=== PATIENT | male | born 1990 | race African-American/Black ===

== ENCOUNTER 2016-11-21 22:12 | Emergency (ER) | payer OTHER ==
[~2016-11-21] VITALS: Ht 162.6 cm; Wt 60.0 kg
[2016-11-22] MEDS ORDERED: NARCAN4 MG NS (00:26)
[2016-11-22 00:50] VITALS: BP 145/91
== END 2016-11-22 00:50 | disposition home or self-care (01) ==
LOC: EME → EDBD 22:12 → EME 11-22 00:50
DX: T40.601A Poisoning by unspecified narcotics, accidental (unintentional), initial encounter (principal); R11.2 Nausea with vomiting, unspecified; F10.99 Alcohol use, unspecified with unspecified alcohol-induced disorder; F17.200 Nicotine dependence, unspecified, uncomplicated
CPT/HCPCS: 93005; 99281; 99285; J2310; J2405; J7030

== ENCOUNTER 2017-07-25 17:07 | Emergency (ER) | payer OTHER ==
[~2017-07-25] VITALS: Ht 165.1 cm; Wt 57.2 kg
[~2017-07-25 17:07] MED LIST: NARCAN4 MG NS
[2017-07-25 17:55] LABS: HEMATOCRIT 45.9 % (38.0-50.0); HEMOGLOBIN 15.1 G/DL (12.5-16.6); MCH 30.3 PG (29.0-34.0); MCHC 32.9 G/DL (30.0-36.0); MCV 92.2 FL (86-99); PLATELET COUNT 257 K/uL (156-360); RBC DIS.WIDTH-CV 11.3 % (11.8-14.6); RBC DIS.WIDTH-SD 38.5 % (39-53); RED BLOOD COUNT 4.98 M/uL (4.00-5.50); WHITE BLOOD COUNT 9.5 K/uL (4.1-10.2)
[2017-07-25 18:04] LABS: ALBUMIN 4.4 g/dL (3.2-4.8); CHLORIDE 106 mEq/L (99-109); POTASSIUM 3.9 mEq/L (3.7-5.4); SODIUM 140 mEq/L (136-147)
[2017-07-25 18:07] LABS: GLUCOSE 86 mg/dL (70-99); TOTAL PROTEIN 7.5 g/dL (6.4-8.3)
[2017-07-25 18:10] LABS: ALKALINE PHOSPHATASE 83 IU/L (3-129); GFR ESTIMATE (CALCULATED) > 59 mL/min/ (58.99-99999)
[2017-07-25 18:11] LABS: UREA NITROGEN (BUN) 10 mg/dL (9-23)
[2017-07-25 18:12] LABS: AST (GOT) 20 IU/L (2-34)
[2017-07-25 18:13] LABS: ALT (GPT) 13 IU/L (3-49)
[2017-07-25 18:16] LABS: APPEARANCE CLEAR ((CLEAR)); BILIRUBIN NEGATIVE; BLOOD NEGATIVE; COLOR YELLOW ((YELLOW)); GLUCOSE (STRIP) NEGATIVE; KETONES 5; LEUKOCYTES NEGATIVE; NITRITE NEGATIVE; PROTEIN (STRIP) NEGATIVE; SPECIFIC GRAVITY 1.023 (1.000-1.030); UCUL ADDED? NO
[2017-07-25 18:38] LABS: LIPASE 37 U/L (1.0-51.0)
[2017-07-25] MEDS ORDERED: ZOFRAN ODT4 MG PO (18:51)
[2017-07-25 19:01] VITALS: BP 135/79
== END 2017-07-25 19:02 | disposition home or self-care (01) ==
LOC: EME 17:07
DX: R11.2 Nausea with vomiting, unspecified (principal); R10.84 Generalized abdominal pain; J45.909 Unspecified asthma, uncomplicated; F31.9 Bipolar disorder, unspecified; F20.9 Schizophrenia, unspecified; F17.200 Nicotine dependence, unspecified, uncomplicated
CPT/HCPCS: 80053; 81003; 83690; 85027; 99281; 99284

== ENCOUNTER 2018-01-02 14:38 | Emergency (ER) | payer OTHER ==
[~2018-01-02] VITALS: Ht 167.6 cm; Wt 55.6 kg
[~2018-01-02 14:38] MED LIST changes: +ZOFRAN ODT4 MG PO
[2018-01-02] MEDS ORDERED: LIDODERM 5% P1 PATCH TD (16:50)
[2018-01-02] MEDS ORDERED: MOTRIN600 MG PO (16:50)
[2018-01-02] MEDS ORDERED: BACLOFEN10 MG PO (16:50)
[2018-01-02 17:15] VITALS: BP 134/99
== END 2018-01-02 17:17 | disposition home or self-care (01) ==
LOC: EME 14:38
DX: M54.5 Low back pain (principal)
CPT/HCPCS: 72100; 99281; 99284; J1885